=== PATIENT | male | born 1995 | race Caucasian/White ===

== ENCOUNTER 2018-08-18 14:24 | Emergency (ER) | payer OTHER ==
[2018-08-18 14:40] VITALS: BMI 21.7
[2018-08-18] MEDS ORDERED: ACETAMINOPHEN 1000 MG/100 ML VIAL (NON FORMULARY) IVPB ONE (14:57)
[2018-08-18] MEDS ORDERED: SODIUM CHLORIDE 1,000 ML IV STA ×2 (14:57→14:58)
[2018-08-18] MEDS ORDERED: ACETAMINOPHEN INJECTION 100 ML IVPB ONE (15:03)
--- NOTE | 2018-08-18 15:05 | PDOC ---
History of Present Illness <ScottyPaddy - Last Filed: 08/18/18 16:03> - General History Source: Patient Exam Limitations: No Limitations - History of Present Illness Initial Comments: 08/18/18 14:59 Patient is a 23M with no significant medical or family history here today complaining of chest pain for the past month. He states that his pain is located under the inferior portion of his sternum and sometime radiates to either shoulder. The patient says that he is not aware of any exacerbating or relieving factors. Denies fevers, chills, nausea, vomiting, cough. Denies history of blood clots, recent travel, leg swelling. Patient endorses smoking marijuana, denies other illicits. 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 He has only had an EKG done as a workup. He states that he has been taking a medication (he is not sure what one) for GERD with no change in his symptoms. <Alex Uriarte - Last Filed: 08/18/18 19:09> - General Chief Complaint: Pain Stated Complaint: CHEST & ABD PAIN Time Seen by Provider: 08/18/18 14:26 Past History <ScottyPaddy - Last Filed: 08/18/18 16:03> - Past Medical History COPD: No GI Disorders: No (GERD) Psychiatric Problems: (anxiety,not on meds per pt.) - Immunization History Immunization Up to Date: Yes - Suicide/Smoking/Psychosocial Hx Smoking History: Former smoker Have you smoked in the past 12 months: Yes If you are a former smoker, when did you quit?: 07/2018 Information on smoking cessation initiated: No Hx Alcohol Use: Yes (2 beers daily) Drug/Substance Use Hx: No Substance Use Type: Marijuana <Alex Uriarte - Last Filed: 08/18/18 19:09> - Past Medical History Allergies/Adverse Reactions: Allergies Allergy/AdvReac Type Severity Reaction Status Date / Time No Known Allergies Allergy Verified 08/18/18 14:34 Home Medications: Ambulatory Orders Unobtainable 08/18/18 Review of Systems - Review of Systems Comments:: 08/18/18 15:02 GENERAL/CONSTITUTIONAL: No fever or chills. No weakness. HEAD, EYES, EARS, NOSE AND THROAT: No change in vision. No ear pain or discharge. No sore throat. CARDIOVASCULAR: +chest pain no shortness of breath RESPIRATORY: No cough, wheezing, or hemoptysis. GASTROINTESTINAL: No nausea, vomiting, diarrhea or constipation. GENITOURINARY: No dysuria, frequency, or change in urination. MUSCULOSKELETAL: No joint or muscle swelling or pain. No neck or back pain. SKIN: No rash NEUROLOGIC: No headache, vertigo, loss of consciousness, or change in strength/ sensation. ENDOCRINE: No increased thirst. No abnormal weight change HEMATOLOGIC/LYMPHATIC: No anemia, easy bleeding, or history of blood clots. ALLERGIC/IMMUNOLOGIC: No hives or skin allergy. <Alex Uriarte - Last Filed: 08/18/18 19:09> *Physical Exam - Vital Signs Last Vital Signs Temp Pulse Resp BP Pulse Ox 98.5 F 108 H 18 138/94 99 08/18/18 14:25 08/18/18 14:25 08/18/18 14:25 08/18/18 14:25 08/18/18 14:25 <Paddy Fajardo - Last Filed: 08/18/18 16:03> - Vital Signs Last Vital Signs Temp Pulse Resp BP Pulse Ox 98.5 F 108 H 18 138/94 99 08/18/18 14:25 08/18/18 14:25 08/18/18 14:25 08/18/18 14:25 08/18/18 14:25 - Physical Exam Comments: 08/18/18 15:02 GENERAL: Awake, alert, and fully oriented, in no acute distress HEAD: No signs of trauma, normocephalic, atraumatic EYES: PERRLA, EOMI, sclera anicteric, conjunctiva clear ENT: Auricles normal inspection, hearing grossly normal, nares patent, oropharynx clear without exudates. Moist mucosa NECK: Normal ROM, supple, no lymphadenopathy, JVD, or masses LUNGS: No distress, speaks full sentences, clear to auscultation bilaterally HEART: Regular rate and rhythm, normal S1 and S2, 3/6 blowing systolic murmur ABDOMEN: Soft, nontender, normoactive bowel sounds. No guarding, no rebound. No masses EXTREMITIES: Normal inspection, Normal range of motion, no edema. No clubbing or cyanosis. NEUROLOGICAL: Cranial nerves II through XII grossly intact. Normal speech, normal gait, no focal sensorimotor deficits SKIN: Warm, Dry, normal turgor, no rashes or lesions noted. <Alex Uriarte - Last Filed: 08/18/18 19:09> ED Treatment Course - LABORATORY CBC & Chemistry Diagram: 08/18/18 15:06 08/18/18 15:06 - ADDITIONAL ORDERS Additional order review: Laboratory Results 08/18/18 08/18/18 15:06 15:06 PT with INR 12.0 INR 1.07 Sodium 138 Potassium 4.1 Chloride 102 Carbon Dioxide 27 Anion Gap 9 BUN 15 Creatinine 1.1 Creat Clearance w eGFR > 60 Random Glucose 134 H Calcium 9.6 Magnesium 2.0 Total Bilirubin 1.6 H AST 30 ALT 44 H Alkaline Phosphatase 52 Total Protein 7.8 Albumin 5.1 H 08/18/18 15:06 RBC 5.20 MCV 93.5 MCHC 33.9 RDW 11.9 MPV 11.2 H Neutrophils % 62.6 Lymphocytes % 28.1 Monocytes % 7.3 Eosinophils % 1.5 Basophils % 0.5 - RADIOLOGY Radiology Studies Ordered: Category Date Time Status CHEST PA & LAT [RAD] Stat Radiology 08/18/18 15:10 Completed - Medications Given in the ED: ED Medications Discontinued Medications Generic Name Dose Route Start Last Admin Trade Name Freq PRN Reason Stop Dose Admin Acetaminophen 1,000 mg 08/18/18 14:57 08/18/18 15:13 Ofirmev Injection - IVPB 08/18/18 14:58 1,000 mg ONCE ONE Administration Sodium Chloride 1,000 mls @ 1,000 mls/hr 08/18/18 14:57 08/18/18 15:13 Normal Saline - IV 08/18/18 15:56 1,000 mls/hr ASDIR STA Administration Sodium Chloride 1,000 mls @ 1,000 mls/hr 08/18/18 14:58 08/18/18 15:13 Normal Saline - IV 08/18/18 15:57 1,000 mls/hr ASDIR STA Administration <Paddy Fajardo - Last Filed: 08/18/18 16:03> - LABORATORY CBC & Chemistry Diagram: 08/18/18 15:06 08/18/18 15:06 - RADIOLOGY Radiology Studies Ordered: Category Date Time Status CHEST X-RAY PORTABLE* [RAD] Stat Radiology 08/18/18 14:57 Ordered <Alex Uriarte - Last Filed: 08/18/18 19:09> Medical Decision Making - Medical Decision Making 08/18/18 15:03 Patient is a 23M here today with chest pain. Vitals notable for tachycardia. EKG shows sinus tachycardia with rate of 114. Right axis. No st elevations/ depressions. T wave inversions in III and aVF. Normal intervals. No prior EKG to compare. DDx includes, but is not limited to: ACS, PE, arrhythmia, CHF, pancreatitis, gastritis. PERC +, but low risk wells. Will workup with cardiac labs, cxr, d- dimer. Will treat with fluids, iv tylenol. 08/18/18 15:31 CXR shows no acute cardiopulmonary process. 08/18/18 19:09 Trop undetectable, CBC, CMP reassuing. Signed out to Dr Ruggiero, pending d-dimer. <Alex Uriarte - Last Filed: 08/18/18 19:09> *DC/Admit/Observation/Transfer <Paddy Fajardo - Last Filed: 08/18/18 16:03> - Discharge Dispostion Decision to Admit order: No <Alex Uriarte - Last Filed: 08/18/18 19:09> Diagnosis at time of Disposition: Chest pain - Discharge Dispostion Condition at time of disposition: Good - Referrals Referrals: Iban Olmstead MD [Staff Physician] - - Patient Instructions Additional Instructions: You must see a painter and paperhanger apprentice for further evaluation of your chest discomfort and palpitations. Even though your bloodwork and chest X-ray were normal today, you had some abnormal findings on your EKG that could suggest heart disease. You were also found to have a heart murmur. You will need an echocardiogram, or ultrasound of your heart. Do not do any strenuous exercise or exert yourself until you are cleared to do so by a painter and paperhanger apprentice. If you experience any worsening palpitations, chest pain, shortness of breath, lightheadedness, fainting, or any other concerning symptoms, return to the ER immediately. Otherwise, call the number provided to make an appointment with a painter and paperhanger apprentice within 1 week.
[2018-08-18 15:42] LABS: INR 1.07 (0.82-1.09)
[2018-08-18 15:46] LABS: ALBUMIN 5.1 g/dl (3.5-5.0); ALK PHOS 52 U/L (32-92); ANION GAP 9 MMOL/L (8-16); BASO % 0.5 % (0-2.0); BILIRUBIN,TOTAL 1.6 mg/dl (0.2-1.0); BLOOD UREA NITROGEN 15 mg/dl (7-18); CALCIUM 9.6 mg/dl (8.4-10.2); CHLORIDE 102 mmol/L (98-107); CO2 27 mmol/L (22-28); CREATININE 1.1 mg/dl (0.6-1.3); EOS % 1.5 % (0-4.5); GLUCOSE,RANDOM 134 mg/dl (74-106); HEMATOCRIT 48.6 % (35.4-49); HEMOGLOBIN 16.5 GM/dl (11.7-16.9); LYMPH % 28.1 % (8-40); MCH 31.7 pg (25.7-33.7); MCHC 33.9 g/dl (32.0-35.9); MEAN CELL VOLUME 93.5 fl (80-96); MEAN PLT VOLUME 11.2 fl (7.5-11.1); MONO % 7.3 % (3.8-10.2); NEUT % 62.6 % (42.8-82.8); PLATELET COUNT 156 K/MM3 (134-434); POTASSIUM 4.1 mmol/L (3.5-5.1); RDW 11.9 % (11.9-15.9); SGOT/AST 30 U/L (10-42); SGPT/ALT 44 U/L (10-40); SODIUM 138 mmol/L (136-145); TOT PROT 7.8 g/dl (6.4-8.3); WHITE BLOOD COUNT 4.8 K/mm3 (4.0-10.8)
--- NOTE | 2018-08-18 15:56 | PDOC ---
Attending Attestation - Resident Resident Name: Alex Uriarte - ED Attending Attestation I have performed the following: I have examined & evaluated the patient, The case was reviewed & discussed with the resident, I agree w/resident's findings & plan, Exceptions are as noted - HPI HPI: 08/18/18 15:53 23 M with no PMH presents to ED with 1 month of intermittent chest discomfort and palpitations. Pt states that he gets episodes almost daily, stating that he will feel his heart racing for about 5 minutes at a time. During these episodes , he feels chest discomfort but denies any chest pain. Denies SOB. Pt denies F/C /cough. Denies any pleuritic or exertional chest pain. Denies leg swelling. Denies drug use or caffeine use. Denies any FH of cardiac disease. - Physicial Exam PE: 08/18/18 15:54 "GENERAL: Awake, alert, and fully oriented, in no acute distress. HEAD: No signs of trauma EYES: PERRLA, EOMI, sclera anicteric, conjunctiva clear ENT: Auricles normal inspection, hearing grossly normal, nares patent, oropharynx clear without exudates. Moist mucosa NECK: Nontender, no stepoffs, Normal ROM, supple, no lymphadenopathy, JVD, or masses LUNGS: Breath sounds equal, clear to auscultation bilaterally. No wheezes, and no crackles HEART: + systolic murmur, Regular rate and rhythm ABDOMEN: Soft, nontender, normoactive bowel sounds. No guarding, no rebound. No masses EXTREMITIES: Normal range of motion, no edema. No clubbing or cyanosis. No cords, erythema, or tenderness NEUROLOGICAL: Cranial nerves II through XII intact. 5/5 strength and sensation in all extremities, Normal speech, normal gait, normal cerebellar function SKIN: Warm, Dry, normal turgor, no rashes or lesions noted. - Medical Decision Making 08/18/18 15:55 23 M with intermittent palpitations and chest discomfort x 1 month. EKG remarkable for TWI in III and aVF. Will r/o ACS with trop. Pt also with elevated HR. Will r/o PE with ddimer. Murmur on exam concerning for possible structural heart disease. EKG is not typical for HCM, and pt has had no syncopal events. - Labs, trop - CXR - IVF
[2018-08-18 19:16] LABS: LIPASE 167 U/L (73-393)
[2018-08-18 19:24] VITALS: BP 147/87; PULSE 94; TEMP 98.2
--- NOTE | 2018-08-19 10:39 | EKG ---
Test Reason : Blood Pressure : / mmHG Vent. Rate : 114 BPM Atrial Rate : 115 BPM P-R Int : 130 ms QRS Dur : 100 ms QT Int : 320 ms P-R-T Axes : 031 091 010 degrees QTc Int : 441 ms SINUS TACHYCARDIA NONSPECIFIC ST ABNORMALITY RIGHTWARD AXIS NO PREVIOUS ECGS AVAILABLE Confirmed by CARLOZ ALBARRAN MD ([id number]) on 08/19/2018 10:39:14 AM Referred By: CAROLINE KIM Confirmed By:CARLOZ ALBARRAN MD
== END 2018-08-18 20:07 | disposition home or self-care (01) ==
LOC: FER 14:24
PROC: 3E033NZ Introduction of Analgesics, Hypnotics, Sedatives into Peripheral Vein, Percutaneous Approach (ICD-10-PCS; principal; 2018-08-18)
PROC: 3E0337Z Introduction of Electrolytic and Water Balance Substance into Peripheral Vein, Percutaneous Approach (ICD-10-PCS; 2018-08-18)
DX: R07.9 Chest pain, unspecified (principal); Z87.891 Personal history of nicotine dependence; K21.9 Gastro-esophageal reflux disease without esophagitis; F41.9 Anxiety disorder, unspecified
CPT/HCPCS: 36415; 71046-TC-FY; 80053; 82550; 83690; 83735; 84484; 85025; 85379; 85610; 93005; 99284-25; J0131; J7030